=== PATIENT | male | born 1960 | race Two or more races ===

== ENCOUNTER 2022-07-08 05:44 | Day surgery (SDC) | payer OTHER ==
[~2022-07-08] VITALS: Ht 165.1 cm; Wt 86.0 kg
[2022-07-08] MEDS ORDERED: ATOR40TA PO (06:22)
[2022-07-08] MEDS ORDERED: Aspir 8181 MG PO (06:22)
[2022-07-08] MEDS ORDERED: HYDCHL25 PO (06:22)
[2022-07-08] MEDS ORDERED: Isosorbide Mono30 MG PO (06:23)
[2022-07-08] MEDS ORDERED: LOSA50 PO (06:23)
[2022-07-08] MEDS ORDERED: NITR.4SL SL (06:23)
[2022-07-08] MEDS ORDERED: OMEP20ER PO (06:23)
[2022-07-08] MEDS ORDERED: TADA10TA (06:24)
[2022-07-08] MEDS ORDERED: XARELTO20 MG PO (06:25)
--- NOTE | 2022-07-08 08:28 | NUR ---
PT VERBALIZED UNDERSTANDING OF WRITTEN AND VERBAL D/C INST. IV REMOVED. SB [id number]. PT TAKEN OUT OF THE HRT CENTER VIA W/C.
== END 2022-07-08 22:45 | disposition home or self-care (01) ==
LOC: MHTC 05:44
DX: I48.91 Unspecified atrial fibrillation (principal); I10 Essential (primary) hypertension; E78.5 Hyperlipidemia, unspecified; I25.118 Atherosclerotic heart disease of native coronary artery with other forms of angina pectoris; Z79.82 Long term (current) use of aspirin; Z88.8 Allergy status to other drugs, medicaments and biological substances; K21.9 Gastro-esophageal reflux disease without esophagitis
CPT/HCPCS: 92960; 93005; 93010; J2704; J7030